=== PATIENT | male | born 1955 | race Caucasian/White ===

== ENCOUNTER 2018-06-20 05:33 | Inpatient (IN) | payer BC ==
[2018-06-20] MEDS: CEFAZOLIN 2 GM/50 ML (PMX) 50 ML IVPB (06:00)
[2018-06-20] MEDS: traMADol 50 MG TAB PO (06:19)
[2018-06-20] MEDS: GABAPENTIN 300 MG CAP PO ×2 (06:19→20:31)
[2018-06-20] MEDS: DEXAMETHASONE 1 MG TAB PO (06:19)
[2018-06-20] MEDS ORDERED: POLYMYXIN/BACITRACIN 1L IRRIG (06:39)
[2018-06-20] MEDS ORDERED: THROMBIN 5000 UNIT VIAL (06:39)
[2018-06-20] MEDS ORDERED: CA CHLORIDE 10% 10 ML SYRINGE (06:39)
[2018-06-20] MEDS ORDERED: BUPIVACAINE 0.5%/EPI (SDV) 30 ML INJ (06:39)
[2018-06-20] MEDS ORDERED: ROCURONIUM 50 MG INJ (07:01)
[2018-06-20] MEDS ORDERED: HYDROmorphONE 2 MG/ML SYG (07:01)
[2018-06-20] MEDS ORDERED: CEFAZOLIN 1 GM INJ (07:01)
[2018-06-20] MEDS ORDERED: PROPOFOL 20 ML (07:01)
[2018-06-20] MEDS ORDERED: MIDAZOLAM 1 MG/ML 2 ML INJ (07:01)
[2018-06-20] MEDS ORDERED: ROPIVACAINE 0.5 % 30 ML VIAL (07:02)
[2018-06-20] MEDS: TRANEXAMIC ACID 1,000 MG in DEXTROSE 5% 100 ML IVPB (07:15)
[2018-06-20] MEDS: POLYMYXIN/BACITRACIN 1L IRRIG IRR (07:28)
[2018-06-20] MEDS: BUPIVACAINE 0.5% (SDV) 30 ML, morphine SULFATE (PF) 8 MG, EPINEPHrine 0.3 MG, KETOROLAC... IRR (07:32)
[2018-06-20] MEDS ORDERED: ACETAMINOPHEN 1000MG/100ML IV 100 ML (07:36)
[2018-06-20] MEDS ORDERED: ONDANSETRON 4 MG INJ (07:36)
[2018-06-20] MEDS ORDERED: KETOROLAC 30 MG INJ (07:36)
[2018-06-20] MEDS ORDERED: DEXAMETHASONE 4 MG/ML 1 ML INJ (07:36)
[2018-06-20] MEDS ORDERED: METOCLOPRAMIDE 10 MG INJ (07:36)
[2018-06-20] MEDS ORDERED: PHENYLephrine (100 MCG/ML) 5ML SYG (07:49)
[2018-06-20] MEDS ORDERED: SUGAMMADEX SODIUM 200 MG/2 ML VIAL IV (07:51)
[2018-06-20] MEDS ORDERED: ONDANSETRON 4 MG INJ IV (08:00)
[2018-06-20] MEDS ORDERED: OXYCODONE/ACETAMINOPHEN (5/325) TAB PO ×4 (08:00→09:00)
[2018-06-20] MEDS ORDERED: LABETALOL HCL 20MG INJ IV (08:00)
[2018-06-20] MEDS ORDERED: METOCLOPRAMIDE 10 MG INJ IV (08:00)
[2018-06-20] MEDS ORDERED: FENTAnyl 50 MCG/ML VIAL IV ×3 (08:00)
[2018-06-20] MEDS ORDERED: HYDROmorphONE 1 MG/5 ML IV SYRINGE IV ×3 (08:00)
[2018-06-20] MEDS ORDERED: hydrALAzine 20 MG INJ IV (08:00)
[2018-06-20] MEDS ORDERED: EPHEDrine SULFATE 50 MG/5 ML SYG IV (08:00)
[2018-06-20] MEDS ORDERED: MEPERIDINE 25 MG INJ IV (08:00)
[2018-06-20] MEDS ORDERED: DIPHENHYDRAMINE 50 MG INJ IV ×2 (08:00→09:00)
[2018-06-20] MEDS ORDERED: HYDROmorphONE 1 MG/ML SYG IV (09:00)
[2018-06-20] MEDS ORDERED: ZOLPIDEM 5 MG TAB PO (09:00)
[2018-06-20] MEDS: SENNA/DOCUSATE NA (8.6MG/50MG) TAB PO ×2 (09:00→20:31)
[2018-06-20] MEDS: NABUMETONE 500 MG TAB PO ×2 (09:00→23:27)
[2018-06-20] MEDS ORDERED: KETOROLAC 15 MG INJ IV (09:00)
[2018-06-20] MEDS ORDERED: HYDROmorphONE 0.5 MG/0.5 ML SYG IV (09:00)
[2018-06-20] MEDS: DONEPEZIL 10 MG TAB PO (09:00)
[2018-06-20] MEDS ORDERED: ACETAMINOPHEN 500 MG TAB PO (09:00)
[2018-06-20] MEDS ORDERED: MAGNESIUM HYDROXIDE 30ML CUP PO (09:00)
[2018-06-20] MEDS: PANTOPRAZOLE (EC) 40 MG TAB PO (10:00)
[2018-06-20] MEDS: TRANEXAMIC ACID 1,000 MG in DEXTROSE 5% 100 ML IV (10:04)
[2018-06-20] MEDS: CEFAZOLIN 1 GM/50 ML (PMX) 50 ML IVPB ×2 (10:39→17:02)
[2018-06-20] MEDS: DEXAMETHASONE 2 MG TAB PO ×3 (12:38→23:30)
[2018-06-20] MEDS: ONDANSETRON 4 MG INJ IV ×2 (13:40→18:58)
[2018-06-20] MEDS: LACTATED RINGER'S 1,000 ML IV* (17:03)
[2018-06-21] MEDS: CEFAZOLIN 1 GM/50 ML (PMX) 50 ML IVPB (00:53)
[2018-06-21] MEDS: PANTOPRAZOLE (EC) 40 MG TAB PO (06:14)
[2018-06-21] MEDS: DEXAMETHASONE 2 MG TAB PO (06:14)
[2018-06-21] MEDS: DONEPEZIL 10 MG TAB PO (08:54)
[2018-06-21] MEDS: SENNA/DOCUSATE NA (8.6MG/50MG) TAB PO (08:54)
[2018-06-21] MEDS: ASPIRIN 81 MG TAB PO (08:54)
[2018-06-21] MEDS: HYDROmorphONE 2 MG TAB PO (08:55)
[2018-06-21] MEDS: NABUMETONE 500 MG TAB PO (08:57)
== END 2018-06-21 10:15 | disposition home or self-care (01) | DRG 483 ==
LOC: REC 05:33 → MS1 10:44
PROC: 0RRK0JZ Replacement of Left Shoulder Joint with Synthetic Substitute, Open Approach (ICD-10-PCS; principal; 2018-06-20 07:00)
DX: M19.112 Post-traumatic osteoarthritis, left shoulder (principal); T14.90XS Injury, unspecified, sequela; W01.0XXS Fall on same level from slipping, tripping and stumbling without subsequent striking against object, sequela; K21.9 Gastro-esophageal reflux disease without esophagitis; Z96.642 Presence of left artificial hip joint; G89.4 Chronic pain syndrome; Z85.828 Personal history of other malignant neoplasm of skin; Z98.52 Vasectomy status
CPT/HCPCS: 73030; 86999; 88304; 88311; 97166